=== PATIENT | female | born 1990 ===

== ENCOUNTER 2016-11-08 03:38 | Emergency (ER) | payer BC ==
[2016-11-08 03:28] LABS: URINE BILIRUBIN NEGATIVE (NEG); URINE BLOOD MODERATE (NEG); URINE GLUCOSE (UA) NEGATIVE (NEG); URINE KETONE MODERATE (NEG); URINE LEUKOCYTE ESTERASE POSITIVE (NEG); URINE NITRITE POSITIVE (NEG); URINE PROTEIN SMALL (NEG); URINE SPECIFIC GRAVITY 1.015 (1.003-1.030)
[2016-11-08 03:30] LABS: URINE APPEARANCE CLOUDY; URINE COLOR YELLOW
[2016-11-08 03:36] LABS: URINE BACTERIA 4+; URINE EPITHELIAL CELLS 0-3 /[HPF] (0-10); URINE WBC 20-30 /[HPF] (0-5)
[2016-11-08] MEDS ORDERED: CIPRO500 M2 PO (03:59)
[2016-11-08] MEDS ORDERED: CYCLOBENZAPRINE5 M1 PO (03:59)
== END 2016-11-08 04:05 ==
LOC: EDMED 03:38
PROVIDERS: Emergency Medicine Emergency Medical Services
DX: N39.0 Urinary tract infection, site not specified (principal); M62.838 Other muscle spasm